=== PATIENT | female | born 1980 | race Caucasian/White ===

== ENCOUNTER 2017-07-09 08:53 | Emergency (ER) | payer MEDICAID ==
[~2017-07-09] VITALS: Ht 180.3 cm; Wt 90.7 kg
[~2017-07-09 08:53] MED LIST: IBUP-1222 PO; OXYC-302 PO
[2017-07-09 08:54] VITALS: BP 131/88
[2017-07-09] MEDS ORDERED: KETOROLAC 30 MG/1 ML ONE (09:18)
[2017-07-09] MEDS ORDERED: DIPH,PERTUSS(ACELL),TET VAC/PF 0.5 ML IM-VACC ONE ×2 (09:19→09:30)
[2017-07-09] MEDS ORDERED: KETOROLAC 30 MG/1 ML IM ONE (09:30)
[2017-07-09] MEDS ORDERED: BACITRACIN ZINC OINT 500U/GM, 0.9 GM ONE (09:52)
== END 2017-07-09 09:58 | disposition home or self-care (01) ==
LOC: ED 09:20
DX: S60.221A Contusion of right hand, initial encounter (principal); W31.89XA Contact with other specified machinery, initial encounter; Y93.89 Activity, other specified; Y92.098 Other place in other non-institutional residence as the place of occurrence of the external cause; Y99.8 Other external cause status
CPT/HCPCS: 73130; 90715; 96372; 99284; J1885